=== PATIENT | female | born 1955 | race Caucasian/White ===

== ENCOUNTER 2021-06-21 09:37 | Emergency (ER) | payer MEDICARE, MEDICAID, SELFPAY ==
--- NOTE | 2021-06-21 09:45 | XR_ITS ---
WS: [id number] Exam: XR chest 1V portable [id number] Date/Time of Exam: 06/21/2021 9:47 AM Reason For Exam: cough No priors. Findings: The lungs are clear and fully expanded. Costophrenic angles are sharp. No infiltrates. Bronchovascula r relief appears normal. Cardiac silhouette is unremarkable. Bony elements are intact. XR/XR chest 1V portable [id number] IMPRESSION: Unremarkable chest radiograph.
[2021-06-21 10:08] VITALS: BP 94/65; PULSE 78; RESP 16; TEMP 37.1; O2SAT 94; BMI 28.3
[2021-06-21 11:23] LABS: SARS Covid-2 Antigen Positive (Negative)
[2021-06-21 16:13] VITALS: PULSE 80; RESP 20; O2SAT 94
[2021-06-21 16:38] VITALS: BP 116/74; PULSE 79; RESP 18; TEMP 37.1; O2SAT 95
[2021-06-21 16:55] LABS: Basophils % 0.3 %; Hematocrit 39.6 % (37.0-47.0); Hemoglobin 12.5 g/dL (11.5-15.3); Lymphocytes # 0.7 10^3/uL (0.8-4.8); Lymphocytes % 19.9 %; Mean Corpuscular HGB Conc 31.6 g/dL (30.0-36.0); Mean Corpuscular Hemoglobin 25.7 pg (28.0-34.0); Mean Corpuscular Volume 81.3 fl (81-99); Mean Platelet Volume 9.4 fL (7.4-10.4); Monocytes # 0.6 10^3/uL (0.2-0.9); Monocytes % 15.8 %; Neutrophils # 2.34 10^3/uL (1.8-7.7); Neutrophils % 63.7 %; Nucleated Red Blood Cells % 0 %; Platelet Count 178 10^3/cmm (130-400); Red Blood Count 4.87 10^6/uL (4.1-5.3); Red Cell Distribution Width 14.1 % (12.1-15.1); White Blood Count 3.7 10^3/uL (4.0-10.0)
--- NOTE | 2021-06-21 17:07 | ED_ITS ---
HPI - COVID General: Chief Complaint: Upper Respiratory Infection Stated Complaint: Covid sx:cough(bronchitis dx) on meds, diff breath Time Seen by Provider: 06/21/21 16:53 Triage information: Has fever, cough or shortness of breath . No known COVID + exposure last 14 days History of Present Illness: HPI Narrative: 65-year-old female presents emergency room with cough and congestion. Myalgias nausea and vomiting. Patient was tested yesterday for Covid at her [facility]. MD complaint: known COVID positive Prior covid testing: yes, results known Prior testing date: 06/21/21 COVID 19 common symptoms: positive fever(s), chills, cough, non-productive cough, dyspnea, fatigue, body aches, loss of sense of smell and/or taste, throat pain, nasal congestion, nausea and diarrhea; negative vomiting or chest tightness COVID 19 other sytmptoms: negative requiring oxygen Onset (ago): day(s) Severity: mild COVID Results: SARS-CoV-2 Antigen (Rapid) Positive (Negative) H 06/21/21 10:05 06/21/21 Review of Systems Const: Reports: fever(s), chills, body aches and fatigue ENMT: Reports: throat pain and nasal congestion Resp: Reports: dyspnea and non-productive cough GI: Reports: nausea and diarrhea; Denies: vomiting PFSH ED PFSH: Social History Smoking and tobacco status: never smoked Alcohol intake: never Physical Exam Const: COMMON NORMALS: no acute distress GENERAL APPEARANCE: cooperative and comfortable ORIENTATION/CONSCIOUSNESS: Yes awake, Yes oriented to person, Yes oriented to place and Yes oriented to time HENMT: COMMON NORMALS: normocephalic, atraumatic, hearing grossly normal bilaterally and external ears normal HEAD & SCALP: normocephalic and atraumatic EXTERNAL EAR: Yes external ears normal Neck/C-Spine: COMMON NORMALS: no JVD Resp: COMMON NORMALS: normal respiratory effort, No retractions and No use of accessory muscles AUSCULTATION: crackles Cardio: COMMON NORMALS: no JVD, regular rate, regular rhythm and No murmurs present (Cardio) RATE: regular rate RHYTHM: regular rhythm GI: COMMON NORMALS: Soft to palpation and No hepatosplenomegaly present AUSCULTATION: Yes normoactive bowel sounds PALPATION: Yes Soft to palpation, No Tenderness to palpation present (GI), No Guarding due to palpation present (GI) and Yes No hepatosplenomegaly present Extremity: COMMON NORMALS: normal to inspection, capillary refill normal, no clubbing, cyanosis or edema, no calf tenderness and no pedal edema Neuro: SENSORIUM/ORIENTATION: Yes oriented to person, Yes oriented to place and Yes oriented to time Skin: COMMON NORMALS: no rashes or lesions noted GENERAL SKIN EXAM: no rashes or lesions noted Course Vital Signs: Vital signs: Vital Signs Temperature 98.7 F 06/21/21 16:38 Pulse Rate 79 06/21/21 16:38 Respiratory Rate 18 06/21/21 16:38 Blood Pressure 116/74 06/21/21 16:38 Pulse Oximetry 95 06/21/21 16:38 MDM - COVID MDM Narrative: Medical decision making narrative: Labs and imaging reviewed. Patient does have COVID-19 she is oxygenating well at this point. Does not require hospitalization we will go ahead and discharge home with supportive cares monitor oxygen sats at home. Lab Data: Labs: Lab Results 06/21/21 06/21/21 06/21/21 10:05 16:45 16:45 WBC 3.7 10^3/uL L 10^ 3/uL (4.0-10.0) RBC 4.87 10^6/uL 10^6 /uL (4.1-5.3) Hgb 12.5 g/dL g/dL (11.5-15.3) Hct 39.6 % % (37.0-47.0) MCV 81.3 fl fl (81-99) MCH 25.7 pg L pg (28.0-34.0) MCHC 31.6 g/dL g/dL (30.0-36.0) RDW 14.1 % % (12.1-15.1) Plt Count 178 10^3/cmm 10^3 /cmm (130-400) MPV 9.4 fL fL (7.4-10.4) Neut % (Auto) 63.7 % % Lymph % (Auto) 19.9 % % [place] % (Auto) 15.8 % % Eos % (Auto) 0.0 % % Baso % (Auto) 0.3 % % Neut # (Auto) 2.34 10^3/uL 10^3 /uL (1.8-7.7) Lymph # (Auto) 0.7 10^3/uL L 10^ 3/uL (0.8-4.8) [place] # (Auto) 0.6 10^3/uL 10^3/ uL (0.2-0.9) Eos # (Auto) 0.0 10^3/uL 10^3/ uL (0.0-0.8) Baso # (Auto) 0.0 10^3/uL 10^3/ uL (0.0-0.1) Nucleated RBC % (a uto) 0 % % Nucleated RBCs # 0.0 /100WBC /100W BC Sodium 133 mmol/L L mmol /L (136-145) Potassium 3.7 mmol/L mmol/L (3.5-5.1) Chloride 92 mmol/L L mmol/ L (98-107) Carbon Dioxide 26 mmol/L mmol/L (22-29) Anion Gap 18.7 (5-19) BUN 14 mg/dL mg/dL (8-23) Creatinine 0.6 mg/dL mg/dL (0.5-0.9) GFR Calculation 100.3 mL/min mL/m in (90-130) Glucose 102 mg/dL mg/dL (65-115) Calculated Osmolal ity 277 mOsm/kg L mOs m/kg (285-295) Lactic Acid Calcium 8.0 mg/dL L mg/dL (8.5-10.5) Total Bilirubin 0.2 mg/dL mg/dL (0.15-1.2) AST 39 U/L H U/L (0-32) ALT 28 U/L U/L (0-33) Alkaline Phosphata se 125 IU/L H IU/L (35-105) Total Protein 7.1 g/dL g/dL (6.6-8.7) Albumin 4.1 g/dL g/dL (3.5-5.2) Globulin 3.0 g/dL g/dL (1.3-4.6) Procalcitonin 0.17 ng/mL ng/mL (0-0.5) Phenytoin Phenobarbital SARS-CoV-2 Ag (Rap id) Positive H (Negative) 06/21/21 06/21/21 16:45 16:45 WBC RBC Hgb Hct MCV MCH MCHC RDW Plt Count MPV Neut % (Auto) Lymph % (Auto) [place] % (Auto) Eos % (Auto) Baso % (Auto) Neut # (Auto) Lymph # (Auto) [place] # (Auto) Eos # (Auto) Baso # (Auto) Nucleated RBC % (a uto) Nucleated RBCs # Sodium Potassium Chloride Carbon Dioxide Anion Gap BUN Creatinine GFR Calculation Glucose Calculated Osmolal ity Lactic Acid 1.0 mmol/L mmol/L (0.5-2.2) Calcium Total Bilirubin AST ALT Alkaline Phosphata se Total Protein Albumin Globulin Procalcitonin Phenytoin 12.1 ug/mL ug/mL (10-20) Phenobarbital 15.2 ug/mL ug/mL (10-30) SARS-CoV-2 Ag (Rap id) COVID Results: SARS-CoV-2 Antigen (Rapid) Positive (Negative) H 06/21/21 10:05 06/21/21 Discharge Plan Discharge Patient Disposition: Home Clinical Impression: COVID-19 Condition: Stable Prescriptions: New Zofran 4 mg tablet 4 mg PO Q6H PRN (Reason: nausea and vomiting) Qty: 20 RF: 0 No Action phenobarbital 32.4 mg tablet 32.4 mg PO TID RF: 0 phenytoin sodium extended 100 mg capsule 100 mg PO BID RF: 0 lamotrigine 150 mg tablet 75 mg PO DAILY RF: 0 amoxicillin 500 mg capsule 1,000 mg PO BID 10 Days Qty: 40 RF: 0 acetaminophen 500 mg tablet 500 mg PO Q6H PRN (Reason: fever or pain) 5 Days Qty: 20 RF: 0 Discharge Orders: Discharge ED (Routine); Ordered 06/21/21 Ordered By: Sloan Haro Referrals: Agustina Pierre DO [Primary Care Provider] - Discharge Diet: Usual diet Discharge Activity: Increase activity as tolerated Patient Instructions: Opioid Safety Activity Restrictions/Additional Instructions: Central scheduling will call to make arrangements for you to receive monoclonal antibodies later this week. Coding Level of Care Code ED Wastewater Manager for Rivera Lara
[2021-06-21 17:09] LABS: Alanine Aminotransferase 28 U/L (0-33); Albumin Level 4.1 g/dL (3.5-5.2); Alkaline Phosphatase 125 IU/L (35-105); Anion Gap 18.7 (5-19); Aspartate Amino Transferase 39 U/L (0-32); Blood Urea Nitrogen 14 mg/dL (8-23); Carbon Dioxide 26 mmol/L (22-29); Chloride 92 mmol/L (98-107); Glomerular Filtration Rate 100.3 mL/min (90-130); Glucose 102 mg/dL (65-115); Osmolality Calculated 277 mOsm/kg (285-295); Potassium 3.7 mmol/L (3.5-5.1); Sodium 133 mmol/L (136-145); Total Bilirubin 0.2 mg/dL (0.15-1.2); Total Protein 7.1 g/dL (6.6-8.7)
[2021-06-21 17:16] LABS: Procalcitonin 0.17 ng/mL (0-0.5)
[2021-06-21 19:17] LABS: Phenytoin Dilantin 12.1 ug/mL (10-20)
== END 2021-06-21 17:53 | disposition home or self-care (01) ==
PROVIDERS: Physician Assistant; Emergency Provider Family Medicine; PCP Family Medicine
DX: U07.1 COVID-19 (principal)
CPT/HCPCS: 71045; 80053; 80184; 80185; 83605; 84145; 85025; 87426; 99283

== ENCOUNTER 2021-06-22 21:53 | Emergency (ER) | payer MEDICARE, MEDICAID, SELFPAY ==
[2021-06-22 22:02] VITALS: BP 96/64; PULSE 76; RESP 22; TEMP 39.3; O2SAT 94; BMI 26.3
--- NOTE | 2021-06-22 22:05 | XRR_ITS ---
PROCEDURE INFORMATION: Exam: XR Chest Exam date and time: 06/22/2021 10:05 PM Age: 65 years old Clinical indication: Shortness of breath; Additional info: Dyspnea TECHNIQUE: Imaging protocol: XR of the chest. Views: 1 view. COMPARISON: CR XR chest 1V portable [id number] 06/21/2021 10:05 AM FINDINGS: Lungs: Left lower lobe atelectasis versus minimal infiltrate. Pleural spaces: Unremarkable. No pleural effusion. No pneumothorax. Heart/Mediastinum: Cardiomegaly. Bones/joints: Unremarkable. XR/XR chest 1V portable [id number] IMPRESSION: 1. Cardiomegaly. 2. Left lower lobe atelectasis versus minimal infiltrate. Radiation Dose CTDIVOL = (mGy): DLP = (mGy-cm)
[2021-06-22] MEDS: acetaminophen 500 mg Tablet 1000 MG PO (22:45)
--- NOTE | 2021-06-22 22:58 | ED_ITS ---
HPI - General Adult General: Chief complaint: COVID symptoms Stated complaint: Low O2 Time Seen by Provider: 06/22/21 22:03 History of Present Illness: HPI narrative: CC: Shortness of breath, fever and generalized weakness HPI: This is a [65] yo patient w/ hx of seizure presenting to the ED with malaise, generalized weakness, cough sputum production, and fever at home x 4days. Since onset of symptoms, has had some shortness of breath and decreased PO intake. NO recent travel. Endorses no sick contacts around. Denies nausea/vomiting/diarrhea. Denies chest pain, diaphoresis, other GI or complaints. Denies any pleuritic chest pain, recent surgery/imm obilization/travel, or hematemesis or hx of VTE in the past. Of note, patient was evaluated earlier today and was given follow up with monoclonal antibody infusion Onset: 5 days ago Duration: ongoing for the last 5 days Location: home Severity: moderate Review of Systems Narrative: Constitutional: +subjective fever, +generalized weakness HEENT: No vision changes CV: No chest pain, no palpitations PULM: +cough, +dyspnea. GI: No abdominal pain, no N/V/D. : No dysuria MSKEL: No muscle pain SKIN: No new rashes, no lesions. NEURO: No headache, no focal weakness. HEME: No visible bruises PSYCH: Normal mood PFSH ED PFSH: Social History Smoking and tobacco status: never smoked Alcohol intake: never Physical Exam Narrative: EXAM NARRATIVE: Head: Atraumatic Eyes: PERRL, conjunctiva without injection ENT: Dry membrane moist NECK: Supple without lymphadenopathy LUNGS: Coarse lung sounds, tachypnea, no crackles/wheezes/rhonchi on exam CV: RRR ABDOMEN: Soft, nontender EXTREMITY: Normal ROM SKIN: No rash or erythema NEURO: Awake and alert. No focal motor deficits. PSYCH: Normal mood and affect. Course Vital Signs: Vital signs: Vital Signs Temperature 102.7 F H 06/22/21 22:02 Pulse Rate 86 06/23/21 01:11 Respiratory Rate 24 H 06/23/21 01:11 Blood Pressure 108/65 06/23/21 01:11 Pulse Oximetry 94 06/23/21 01:11 MDM - General Adult MDM Narrative: Medical decision making narrative: [65]yo patient presenting to the ED with shortness of breath, cough, and malaise concerning for pneumonia with findings of fever, decreased/junky breath sounds, and tachypnea. Workup today includes XR chest Defer lab work at this time given that the patient is well appearing with stable vital signs and without recent hospitalization or care facility stay. Given History, Exam, and Workup presentation most consistent with pneumonia.Presentation not consistent with PE, COPD exacerbation, P neumothorax, TB, Atypical ACS, Esophageal Rupture, Toxic Exposure, Foreign Body Airway Obstruction. Intervention: Tylenol 1gram, PO challenge, serial reassessment, oxygen Covid test positive from earlier today. Findings consistent with viral pneumonia, suspected COVID. Afebrile currently. Patient continues to be in no respiratory distress with sats sats > 95% without requirements of oxygen in the emergency department. I have offered patient monoclonal antibody (MCA) infusion since patient fulfills the following criteria: COVID+, symptom < 10 days, weight > 88lbs, age >12, NOT requiring additional oxygen compared to baseline. In addition, patient has met one or more of the following criteria including following for EUA of BAM: 1. any medical condition or other factor (including race, ethnicity, social/health care access inequality that puts patient at high risk for progression of disease), 2. obesity (BMI > 25), 3. , 4. CKD, 5. DM, 6. Immunocompromise, 7. cardiovascular disease/HTN, 8. Chronic lung disease, 9. SCD, 10. Neurodevelopmental disorder, 11. Chronic medical-related technological dependence (trach/g-tube/home CPAP), disability, and age >= 65. I have discussed with patient the risks, benefits, and alternatives of obtaining MCA infusion from the MCA consent sheets in detail, and patient agrees with plan for infusion. Patient verbalizes understandings of the risks and alternatives to obtaining BAM today. Please refer to consent sheet for BAM treatment. Disposition: BAM infusion and discharge home. I have given patient strict return precautions for any complications relating to BAM therapy Discharge Plan Discharge Patient Disposition: Home Clinical Impression: Fever, Cough, Generalized weakness, Malaise, COVID Condition: Stable Prescriptions: New acetaminophen 500 mg tablet 500 mg PO Q6H PRN (Reason: fever or pain) 5 Days Qty: 20 RF: 0 No Action phenobarbital 32.4 mg tablet 32.4 mg PO TID RF: 0 phenytoin sodium extended 100 mg capsule 100 mg PO BID RF: 0 lamotrigine 150 mg tablet 75 mg PO DAILY RF: 0 amoxicillin 500 mg capsule 1,000 mg PO BID 10 Days Qty: 40 RF: 0 Zofran 4 mg tablet 4 mg PO Q6H PRN (Reason: nausea and vomiting) Qty: 20 RF: 0 Discharge Orders: Discharge ED (Routine); Ordered 06/23/21 Ordered By: Sterling Chun Referrals: Agustina Pierre DO [Primary Care Provider] - Discharge Diet: Advance as tolerated Discharge Activity: Resume usual activity Patient Instructions: COVID-19 (Coronavirus Disease 2019) (ED) Activity Restrictions/Additional Instructions: Come back to the emergency room if your symptoms worsen, have any shortness of breath, fever/chills, dehydration, inability tolerate p.o., any difficulty breathing, or any new or concerning complaints. Coding Level of Care Code ED Screen And Cyclone Repairer for Rivera Lara
[2021-06-22 23:14] VITALS: O2SAT 100
[2021-06-22] MEDS: sodium chloride 0.9% 1,000 ML 999 ML IV (23:45)
[2021-06-23 01:11] VITALS: BP 108/65; PULSE 86; RESP 24; O2SAT 94
== END 2021-06-23 00:55 | disposition home or self-care (01) ==
PROVIDERS: Emergency Provider Emergency Medicine; PCP Family Medicine
DX: U07.1 COVID-19 (principal)
CPT/HCPCS: 71045; 96365; 99283; J7030

== ENCOUNTER 2022-03-13 11:46 | Outpatient (CLI) | payer MEDICARE, MEDICAID, SELFPAY ==
--- NOTE | 2022-03-13 11:59 | MM_ITS ---
WS: [id number] BILATERAL SCREENING DIGITAL TOMOSYNTHESIS MAMMOGRAM WITH CAD HISTORY: SCREENING COMPARISON: 05/29/2012 and 05/13/2012 Bilateral CC and MLO views with tomosynthesis and synthetic mammography submitted. Computer aided det ection analyzed. Difficulty positioning of the lateral projections including the posterior breast tis rebeca. Breast composition: The breasts are heterogeneously dense, which may obscure small masses. No suspici ous masses, microcalcifications or architectural distortion. Asymmetry in the anterior LEFT breast on the MLO projection is stable. MM/[place] [id number] IMPRESSION: BI-RADS: 2-Benign FOLLOW UP: 1 Year Follow-up
== END 2022-03-13 11:47 | disposition home or self-care (01) ==
LOC: RAD 11:47
PROVIDERS: PCP Family Medicine; Visit Provider Nurse Practitioner Family
DX: Z12.31 Encounter for screening mammogram for malignant neoplasm of breast (principal)
CPT/HCPCS: 77063; 77067

== ENCOUNTER → 2022-12-11 14:51 | Outpatient (BNVA) | payer MEDICARE, MEDICAID, SELFPAY | PROVIDERS: PCP Clinical Nurse Specialist Adult Health; Visit Provider Clinical Nurse Specialist Adult Health | DX: G40.909 Epilepsy, unspecified, not intractable, without status epilepticus (principal); R60.9 Edema, unspecified; G47.33 Obstructive sleep apnea (adult) (pediatric) | CPT/HCPCS: 80053; 83880; 84443; 85025 ==

== ENCOUNTER 2023-01-02 13:00 | Outpatient (CLI) | payer MEDICARE, MEDICAID, SELFPAY | END 2023-01-02 13:01 | disposition home or self-care (01) | LOC: SLEEP 01-04 13:30 | PROVIDERS: PCP Clinical Nurse Specialist Adult Health; Visit Provider Clinical Nurse Specialist Adult Health | DX: G47.33 Obstructive sleep apnea (adult) (pediatric) (principal); R06.83 Snoring | CPT/HCPCS: 80053; 83880; 84443; 85025; G0399 ==

== ENCOUNTER → 2023-09-06 12:02 | Outpatient (BNVA) | payer MEDICARE, MEDICAID, SELFPAY | PROVIDERS: PCP Clinical Nurse Specialist Adult Health; Visit Provider Clinical Nurse Specialist Adult Health | DX: M81.0 Age-related osteoporosis without current pathological fracture (principal) | CPT/HCPCS: 82306 ==

== ENCOUNTER → 2023-09-25 12:32 | Outpatient (BNVA) | payer MEDICARE, MEDICAID, SELFPAY | PROVIDERS: PCP Clinical Nurse Specialist Adult Health; Referring Provider Clinical Nurse Specialist Adult Health; Visit Provider Nurse Practitioner Family | DX: L57.0 Actinic keratosis (principal); L58.0 Acute radiodermatitis; D22.5 Melanocytic nevi of trunk; L82.1 Other seborrheic keratosis; L91.8 Other hypertrophic disorders of the skin; L85.3 Xerosis cutis; Z85.828 Personal history of other malignant neoplasm of skin | CPT/HCPCS: 17000; 99203 ==

== ENCOUNTER → 2024-01-22 11:23 | Outpatient (BNVA) | payer MEDICARE, MEDICAID, SELFPAY | PROVIDERS: PCP Clinical Nurse Specialist Adult Health; Visit Provider Nurse Practitioner Family | DX: L57.0 Actinic keratosis (principal); L57.8 Other skin changes due to chronic exposure to nonionizing radiation; L81.4 Other melanin hyperpigmentation | CPT/HCPCS: 17000; 99213 ==

== ENCOUNTER → 2024-06-04 15:26 | Outpatient (BNVA) | payer MEDICARE, MEDICAID, SELFPAY | PROVIDERS: PCP Clinical Nurse Specialist Adult Health; Visit Provider Nurse Practitioner Family | DX: L57.8 Other skin changes due to chronic exposure to nonionizing radiation (principal); L81.4 Other melanin hyperpigmentation; D22.5 Melanocytic nevi of trunk; L82.1 Other seborrheic keratosis; L91.8 Other hypertrophic disorders of the skin; L85.3 Xerosis cutis; L57.0 Actinic keratosis; Z85.828 Personal history of other malignant neoplasm of skin | CPT/HCPCS: 17000; 99214 ==

== ENCOUNTER → 2025-01-01 13:30 | Outpatient (BNVA) | payer MEDICARE, MEDICAID, SELFPAY | PROVIDERS: PCP Clinical Nurse Specialist Adult Health; Visit Provider Nurse Practitioner Family | DX: L82.1 Other seborrheic keratosis (principal); L81.4 Other melanin hyperpigmentation; L57.8 Other skin changes due to chronic exposure to nonionizing radiation; D22.5 Melanocytic nevi of trunk; L91.8 Other hypertrophic disorders of the skin; L72.0 Epidermal cyst; Z08 Encounter for follow-up examination after completed treatment for malignant neoplasm; Z85.828 Personal history of other malignant neoplasm of skin; D48.5 Neoplasm of uncertain behavior of skin; L57.0 Actinic keratosis | CPT/HCPCS: 11102; 17000; 99213 ==